=== PATIENT | male | born 1930 | race African-American/Black ===

== ENCOUNTER 2017-05-28 09:37 | Day surgery (SDC) | payer BC ==
[~2017-05-28 09:37] MED LIST: KETOROLAC TROMETHAMINE 0.45% 4 DROP/0.4 ML DROPERETTE OD PRN
[2017-05-28] MEDS ORDERED: LIDOCAINE 1% INJ-PF (10 MG/ML) 30 ML SDV ONE (09:51)
[2017-05-28] MEDS ORDERED: CHONDR SU A NA/HYALUR INTRAOC KIT (SURGICARE) ONE (09:52)
[2017-05-28] MEDS: CYCLOPENTOLATE 0.2%/PHENYLEPHRINE 1% OPH SOLN 2 ML OD PRN ×3 (09:52→10:12)
[2017-05-28] MEDS: TROPICAMIDE 1% OPH SOLN 3 ML OD PRN ×3 (09:52→10:12)
[2017-05-28] MEDS: BESIFLOXACIN HCL 0.6% OPH SUSP 5 ML BOTTLE OD PRN ×4 (09:52→10:43)
[2017-05-28] MEDS ORDERED: PHENYLEPHRINE/KETOROLAC 1%-0.3% 4 ML VIAL ONE ×2 (09:52→09:55)
[2017-05-28] MEDS: TETRACAINE HCL 0.5% OPH SOLN 2 ML OD PRN ×3 (09:53→10:19)
[2017-05-28] MEDS ORDERED: MIDAZOLAM 2 MG/2 ML INJ ONE (10:04)
[2017-05-28] MEDS ORDERED: FENTANYL CITRATE INJ/PF 100 MCG/2 ML AMPUL ONE (10:05)
[2017-05-28] MEDS ORDERED: TRYPAN BLUE 0.06 % OPH SOLN 0.5 ML DISP.SYRIN ONE (10:30)
--- NOTE | 2017-05-29 07:28 | [facility] OPERATIVE REPORT E ---
[facility] Operative Report NAME: ENRICO BLACK AGE: 86Y DATE OF SURGERY: 05/28/2017 ROOM: PREOPERATIVE DIAGNOSIS: CATARACT, RIGHT EYE. POSTOPERATIVE DIAGNOSIS: CATARACT, RIGHT EYE. OPERATION: Cataract extraction with intraocular lens implant of the right eye. SURGEON: NAHUM KENNEY MD ANESTHESIA: Topical. PROCEDURE: After obtaining appropriate consent, the patient's right eye was prepped and draped in sterile fashion as well as the surgeon in a sterile manner and cataract surgery was started. First a paracentesis blade was used to make a small side-port incision. Viscoelastic was used to inflate the anterior chamber. Next a 2.4 mm incision was made with the paracentesis blade. A continuous capsulorrhexis incision was made using a cystotome and Utrata forceps. Following this hydrodissection was carried out to make the lens fully loose and mobile and it was rotated 90 degrees. The remaining cortex was removed with irrigation/aspiration. Provisc was instilled into the capsular bag to inflate the bag. A SN60WF, 22.0 diopter lens was placed. Following this, a wzxnvf-ljg-kotmcrn technique was used to phacoemulsify the lens with a CDE of 6.26. The remaining viscoelastic material was removed with irrigation/aspiration. Following this, a 10-0 nylon suture was used to close the incision and it was found to be watertight. Vigamox was instilled in the eye and a protective shield was placed over the eye. The patient returned to the postoperative recovery in stable condition. DICTATING PHYSICIAN: NAHUM KENNEY M.D. [id number] PHY#: [id number] ID: [id number] JOB#: [id number] ACCT: [id number] cc:NAHUM KENNEY M.D. >
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
== END 2017-05-28 11:28 | disposition home or self-care (01) ==
LOC: SC 09:37
PROVIDERS: ATTEND Internal Medicine
PROC: 08RJ3JZ Replacement of Right Lens with Synthetic Substitute, Percutaneous Approach (ICD-10-PCS; principal; 2017-05-28 11:30)
DX: H25.89 Other age-related cataract (principal); H40.053 Ocular hypertension, bilateral; E11.9 Type 2 diabetes mellitus without complications; Z96.1 Presence of intraocular lens; Z98.42 Cataract extraction status, left eye; I10 Essential (primary) hypertension; E78.00 Pure hypercholesterolemia, unspecified; Z87.891 Personal history of nicotine dependence; Z79.82 Long term (current) use of aspirin; Z79.899 Other long term (current) drug therapy; Z79.84 Long term (current) use of oral hypoglycemic drugs
CPT/HCPCS: 66984; 82962; V2632; J2250; J3490 ×3; J3010; C9447; 142

== ENCOUNTER → 2017-09-17 | Outpatient (CLI) | payer BC ==
--- NOTE | 2017-09-17 11:00 | RADIOLOGY REPORT (SQ) ---
EXAM DESCRIPTION: CAROTID DOPPLER COMPLETED DATE/TIME: 09/17/2017 10:40 am REASON FOR STUDY: BILATERAL BRUITS R94.31 ABNORMAL ELECTROCARDIOGRAM ECG EKG R09.89 OTH SYMPTOMS A ND SIGNS INVOLVING THE CIRC AND RESP SY COMPARISON: None. TECHNIQUE: Grayscale ultrasound, Doppler velocity and spectra, and color Doppler images acquired of the extra-cranial carotid and vertebral arteries. Images stored on PACS. LIMITATIONS: None. FINDINGS: RIGHT CAROTID CCA Velocities: Within normal limits. ICA Velocities Peak systolic 0.56 m/s. End diastolic 0.20 m/s. Proximal ICA/CCA peak systolic ratio 1.2. Spectra normal. No significant plaque. LEFT CAROTID CCA Velocities: Within normal limits. ICA Velocities Peak systolic 0.53 m/s. End diastolic 0.25 m/s. Proximal ICA/CCA peak systolic ratio 1.2. Spectra normal. No significant plaque. VERTEBRAL ARTERIES: Antegrade flow. Normal waveforms. SUBCLAVIAN ARTERIES: No finding. OTHER: No other significant finding. IMPRESSION: NO HEMODYNAMICALLY SIGNIFICANT STENOSIS. COMMENT: Quality ID #[id number]: Velocity criteria are extrapolated from the diameter data as defined by t he Society of Radiologists in Ultrasound Consensus Conference. Radiology 2003: 229; 340-346. TECHNICAL DOCUMENTATION: JOB ID: [id number] [employer]- All Rights Reserved
--- NOTE | 2017-09-17 20:07 | XCELERA REPORT ---
[address] [address] Transthoracic Echocardiogram Report Name: ENRICO BLACK Age: 86 yrs Gender: Male : 1930 Patient Status: Outpatient Patient Location: Study Date: 09/17/2017 10:02 AM Height: 69 in Weight: 234 lb BSA: 2.2 m2 Reason For Study: ABNORMAL EKG Ordering Physician: TATY COHEN Performed By: Nichole Skaggs Interpretation Summary Poor study with this GE machine Small post pericardial effusion Mild AV sclerosis, no mild AR with no LV enlargement. Mild mitral annular calcification, no MS, trace MR, no LA enlargement. Mod concentric hypertrophy, IVS/PW = 14mm/14mm. LVEFis <60%, and there is stage I LV diastolic dysfunction. Inferior hypokinesis suspected, and Ant wall poorly seen, the rest normal. RH poorly seen, there is mild PHTN RVSP 35 mm Hg, trace TR and ID. MMode/2D Measurements & Calculations RVDd: 3.4 cm LVIDd: 5.1 cm FS: 31.8 % Ao root diam: IVSd: 1.4 cm LVIDs: 3.5 cm EDV(Teich): 3.7 cm LVPWd: 1.4 cm 122.4 ml Ao root area: ESV(Teich): 49.6 ml 10.5 cm2 EF(Teich): 59.5 % EDV(MOD-sp4): SV(MOD-sp4): 131.3 ml 67.2 ml ESV(MOD-sp4): 64.2 ml EF(MOD-sp4): 51.2 % Doppler Measurements & Calculations MV E max nora: MV dec slope: Ao V2 max: AI max nora: 74.7 cm/sec 146.0 cm/sec 287.9 cm/sec MV A max nora: 306.9 cm/sec2 Ao max PG: AI max P.5 cm/sec MV dec time: 8.5 mmHg 33.2 mmHg MV E/A: 0.84 0.24 sec AI dec slope: 89.8 cm/sec2 AI P1/2t: 939.0 msec LV V1 max PG: PA V2 max: PI end-d nora: TR max nora: 3.3 mmHg 91.7 cm/sec 92.9 cm/sec 280.5 cm/sec LV V1 max: PA max P.4 mmHg TR max P.3 cm/sec 31.5 mmHg I WMSI = 1.14 % Normal = 86 Segments Size X - Cannot 1 - Normal 2 - 3 - Akinetic4 - 1-2 small Interpret Hypokinetic Dyskinetic 3-5 moderate 5 - 6-14 large Aneurysmal 15-16 diffuse : TATY COHEN > Rafi Marsh
== END ==
LOC: SP 08:53
PROVIDERS: ATTEND Family Medicine
DX: R94.31 Abnormal electrocardiogram [ECG] [EKG] (principal); R09.89 Other specified symptoms and signs involving the circulatory and respiratory systems
CPT/HCPCS: 93306; 93880